=== PATIENT | female | born 1995 | race African-American/Black ===

== ENCOUNTER 2017-04-02 17:41 | Emergency (ER) | payer SELFPAY ==
[~2017-04-02] VITALS: Ht 160 cm; Wt 60.0 kg
[~2017-04-02 17:41] MED LIST: ZOFR4TAB3 SL
[2017-04-02 17:43] VITALS: BP 130/72; PULSE 66; RESP 20; TEMP 95.3; O2SAT 100
--- NOTE | 2017-04-02 17:50 | PD ---
HPI . intermittent spotting and suprapubic pain for few weeks Chief Complaint: Gut Dropper Problem/Complaint Time Seen by Provider: 17:50 Travel History International Travel<30 days: No Contact w/Intl Traveler<30days: No Traveled to known affect area: No History of Present Illness HPI 21-year-old female with no significant past medical history here with complaints of intermittent vaginal spotting since March 16, 2017. She also reports suprapubic pain that she rates as 8/10 without any further radiation. Patient decided to come in to the emergency room for evaluation as her symptoms do not seem to be improving. She also reports a white thick discharge. She tells me that the spotting is very light and at times she doesn't even require a panty liner. She denies any high risk sexual behaviors. She denies dysuria. She has no fever or chills. She has no other complaints. PFSH Past Medical History Hx Anticoagulant Therapy: No Blood Disorders: No Anxiety: Yes Depression: Yes Cancer: No Cardiovascular Problems: No Chemotherapy: No Cerebrovascular Accident: No Diabetes: No Diminished Hearing: No Endocrine: No Genitourinary: No Immune Disorder: No Neurologic: No Psychiatric: Yes Reproductive: No Respiratory: No Immunizations Current: Yes ?: Unknown LMP: 03/09/17 Menopausal: No : 1 Para: 0 Miscarriage: 1 Past Surgical History Hysterectomy: No Other Surgery: No Social History Alcohol Use: Yes (ON OCCASION) Tobacco Use: No Substance Use: No Allergies-Medications (Allergen,Severity, Reaction): Coded Allergies: No Known Allergies (Unverified , 04/02/17) Reported Meds & Prescriptions Reported Meds & Active Scripts Active Ciprofloxacin (Ciprofloxacin HCl) 500 Mg Tab 500 Mg PO BID 5 Days Review of Systems General / Constitutional: No: Fever Eyes: No: Visual changes HENT: No: Headaches Cardiovascular: No: Chest Pain or Discomfort Respiratory: No: Shortness of Breath Gastrointestinal: Positive: Abdominal Pain (suprapubic pain ) Genitourinary: Positive: Discharge, Vaginal Bleeding, No: Dysuria Musculoskeletal: No: Pain Skin: No Rash Neurologic: No: Weakness Psychiatric: No: Depression Endocrine: No: Polydipsia Hematologic/Lymphatic: No: Easy Bruising Physical Exam Narrative GENERAL: AAO x 3, no acute distress, Well-nourished, well-developed patient. SKIN: Warm and dry. No visible rashes or bruising. HEAD: Normocephalic and atraumatic. EYES: No scleral icterus. No injection or drainage. ENT: No nasal drainage noted. Mucous membranes pink. Airway patent. NECK: Supple, trachea midline. No JVD. CARDIOVASCULAR: Regular rate and rhythm without murmurs, gallops, or rubs. RESPIRATORY: Breath sounds equal bilaterally. No accessory muscle use. No rhonchi or rales. GASTROINTESTINAL: Abdomen soft, non-tender, nondistended. PELVIC: Crissy VERAS present: + cervical drainage, purulent appearance, white/ yellow colored, no blood, + cervical motion tenderness EXTREMITIES: No cyanosis or edema. BACK: Nontender without obvious deformity. No CVA tenderness. PSYCH: AAO x 3, normal affect. Data Data Last Documented VS Vital Signs Date Time Temp Pulse Resp B/P Pulse Ox O2 Delivery O2 Flow Rate FiO2 04/02/17 17:43 95.3 66 20 130/72 100 Room Air Orders Complete Blood Count With Diff (04/02/17 17:58) Basic Metabolic Panel (Bmp) (04/02/17 17:58) Gc And Chlamydia Pcr (04/02/17 17:58) Wet Prep Profile (04/02/17 17:58) Urinalysis - C+S If Indicated (04/02/17 17:58) Ketorolac Inj (Toradol Inj) (04/02/17 18:15) Urine Culture (04/02/17 18:01) Azithromycin Powd Pack (Zithromax Powd P (04/02/17 18:45) Ceftriaxone Inj (Rocephin Inj) (04/02/17 18:45) Lidocaine 1% Inj (50 Ml) (Xylocaine 1% I (04/02/17 18:45) Labs Laboratory Tests Test 04/02/17 04/02/17 18:01 18:04 Urine Color YELLOW Urine Turbidity HAZY Urine pH 6.5 Urine Specific [place] 1.015 Urine Protein NEG mg/dL Urine Glucose (UA) NEG mg/dL Urine Ketones NEG mg/dL Urine Occult Blood NEG Urine Nitrite NEG Urine Bilirubin NEG Urine Urobilinogen 2.0 MG/DL Urine Leukocyte Esterase SMALL Urine RBC LESS THAN 1 /hpf Urine WBC 2 /hpf Urine Squamous Epithelial 10 /hpf Cells Urine Amorphous Sediment RARE Urine Bacteria MOD /hpf Microscopic Urinalysis Comment CULTURE INDICATED White Blood Count 6.3 TH/MM3 Red Blood Count 4.45 MIL/MM3 Hemoglobin 12.8 GM/DL Hematocrit 40.2 % Mean Corpuscular Volume 90.3 FL Mean Corpuscular Hemoglobin 28.8 PG Mean Corpuscular Hemoglobin 31.9 % Concent Red Cell Distribution Width 13.1 % Platelet Count 244 TH/MM3 Mean Platelet Volume 8.4 FL Neutrophils (%) (Auto) 47.9 % Lymphocytes (%) (Auto) 38.5 % Monocytes (%) (Auto) 8.6 % Eosinophils (%) (Auto) 4.3 % Basophils (%) (Auto) 0.7 % Neutrophils # (Auto) 3.0 TH/MM3 Lymphocytes # (Auto) 2.4 TH/MM3 Monocytes # (Auto) 0.5 TH/MM3 Eosinophils # (Auto) 0.3 TH/MM3 Basophils # (Auto) 0.0 TH/MM3 CBC Comment DIFF FINAL Differential Comment Clue Cells (Wet Prep) NONE SEEN Vaginal Trichomonas (Wet Prep) NONE SEEN Vaginal Yeast (Wet Prep) NONE SEEN Sodium Level 139 MEQ/L Potassium Level 3.9 MEQ/L Chloride Level 106 MEQ/L Carbon Dioxide Level 24.3 MEQ/L Anion Gap 9 MEQ/L Blood Urea Nitrogen 11 MG/DL Creatinine 0.76 MG/DL Estimat Glomerular Filtration 114 ML/MIN Rate Random Glucose 94 MG/DL Calcium Level 9.9 MG/DL MDM Medical Decision Making Medical Screen Exam Complete: Yes Emergency Medical Condition: Yes Medical Record Reviewed: Yes Differential Diagnosis candidiasis, BV, gonorrhea, chlamydia, PID Narrative Course 21 yr old female here with c/o vaginal spotting and suprapubic pain. Labs and cultures have been ordered. Pelvic exam done and reveals some cervical discharge. I discussed STDs and treatment. Patient opted for prophylactic treatment. I have provided Rocephin and Azithromycin. I believe she may have gonorrhea. No BV, Trichomoniasis or Yeast seen. Discussed with patient. Date/Time Procedure Status Source Growth 04/02/17 18:01 Urine Culture Received Urine Random Urine Pending Laboratory Tests Test 04/02/17 04/02/17 18:01 18:04 Urine Color YELLOW Urine Turbidity HAZY Urine pH 6.5 Urine Specific [place] 1.015 Urine Protein NEG mg/dL Urine Glucose (UA) NEG mg/dL Urine Ketones NEG mg/dL Urine Occult Blood NEG Urine Nitrite NEG Urine Bilirubin NEG Urine Urobilinogen 2.0 MG/DL Urine Leukocyte Esterase SMALL Urine RBC LESS THAN 1 /hpf Urine WBC 2 /hpf Urine Squamous Epithelial 10 /hpf Cells Urine Amorphous Sediment RARE Urine Bacteria MOD /hpf Microscopic Urinalysis Comment CULTURE INDICATED White Blood Count 6.3 TH/MM3 Red Blood Count 4.45 MIL/MM3 Hemoglobin 12.8 GM/DL Hematocrit 40.2 % Mean Corpuscular Volume 90.3 FL Mean Corpuscular Hemoglobin 28.8 PG Mean Corpuscular Hemoglobin 31.9 % Concent Red Cell Distribution Width 13.1 % Platelet Count 244 TH/MM3 Mean Platelet Volume 8.4 FL Neutrophils (%) (Auto) 47.9 % Lymphocytes (%) (Auto) 38.5 % Monocytes (%) (Auto) 8.6 % Eosinophils (%) (Auto) 4.3 % Basophils (%) (Auto) 0.7 % Neutrophils # (Auto) 3.0 TH/MM3 Lymphocytes # (Auto) 2.4 TH/MM3 Monocytes # (Auto) 0.5 TH/MM3 Eosinophils # (Auto) 0.3 TH/MM3 Basophils # (Auto) 0.0 TH/MM3 CBC Comment DIFF FINAL Differential Comment Clue Cells (Wet Prep) NONE SEEN Vaginal Trichomonas (Wet Prep) NONE SEEN Vaginal Yeast (Wet Prep) NONE SEEN Sodium Level 139 MEQ/L Potassium Level 3.9 MEQ/L Chloride Level 106 MEQ/L Carbon Dioxide Level 24.3 MEQ/L Anion Gap 9 MEQ/L Blood Urea Nitrogen 11 MG/DL Creatinine 0.76 MG/DL Estimat Glomerular Filtration 114 ML/MIN Rate Random Glucose 94 MG/DL Calcium Level 9.9 MG/DL Recommend safe sexual practices. Advised to go to [facility] for further STD testing. Patient verbalized understanding of instructions, questions were answered, and thanked me for their care. I advised them if their condition worsens, please return to the nearest emergency room for further care. Diagnosis Primary Impression: Vaginal discharge Additional Impression: Urinary tract infection Qualified Code: N39.0 - Urinary tract infection without hematuria, site unspecified Patient Instructions: General Instructions, Safe Sex (ED) Additional Instructions: Please return to emergency department if your symptoms return or worsen. Follow up with your primary care provider. Take medications as prescribed. Please follow-up with the [facility] for further STD testing. Med/Other Pt SpecificInfo: Prescription(s) given Scripts Ciprofloxacin 500 Mg [id number] Mg PO BID 5 Days Ref 0 Prov:Del Aly MD 04/02/17 Disposition: 01 DISCHARGE HOME Condition: Stable Stephany Rubio April 02, 2017 17:50
[2017-04-02] MEDS ORDERED: KETOROLAC TROMETHAMINE 60 MG/2 ML (IM) VIAL IM ONE (18:15)
[2017-04-02 18:30] LABS: BASOPHIL % 0.7 % (0.0-2.0); EOSINOPHIL # 0.3 TH/MM3 (0-0.4); EOSINOPHIL % 4.3 % (0.0-4.0); HEMATOCRIT 40.2 % (35.0-46.0); HEMO FLAGS DIFF FINAL; LYMPH % 38.5 % (9.0-44.0); LYMPHOCYTE # 2.4 TH/MM3 (1.0-4.8); MEAN CELL VOLUME 90.3 FL (80.0-100.0); MEAN CORPUSCULAR HEMOGLOBIN 28.8 PG (27.0-34.0); MEAN CORPUSCULAR HGB CONC 31.9 % (32.0-36.0); MONO % 8.6 % (0.0-8.0); NEUT % 47.9 % (16.0-70.0); PLATELET COUNT 244 TH/MM3 (150-450); RED BLOOD COUNT 4.45 MIL/MM3 (4.00-5.30); RED CELL DISTRIBUTION WIDTH 13.1 % (11.6-17.2); WHITE BLOOD COUNT 6.3 TH/MM3 (4.0-11.0)
[2017-04-02 18:36] LABS: BACTERIA, URINE MOD /hpf; BLOOD, URINE NEG (NEG); COMMENT (UR) CULTURE INDICATED; CULTURE IF INDICATED CULTURE INDICATED; GLUCOSE,URINE NEG (NEG); KETONE, URINE NEG (NEG); NITRITE,URINE NEG (NEG); PH, URINE 6.5 (5.0-8.5); SQUAMOUS EPITHELIAL CELL URINE 10 /hpf (0-5); URINE COLOR YELLOW (YELLW/STRAW)
[2017-04-02 18:37] LABS: BICARBONATE 24.3 MEQ/L (21.0-32.0); POTASSIUM 3.9 MEQ/L (3.5-5.1)
[2017-04-02] MEDS ORDERED: cefTRIAXone 250 MG VIAL IM ONE (18:45)
[2017-04-02] MEDS ORDERED: AZITHROMYCIN PWD FOR SUSP 1 GM PACKET PO ONE (18:45)
[2017-04-02] MEDS ORDERED: LIDOCAINE HCL 1% 50 ML VIAL IM ONE (18:45)
[2017-04-02] MEDS ORDERED: CIPR500T2 PO (18:46)
[2017-04-02 21:32] LABS: CHLAMYDIA PCR NOT DETECTED (NOT DETECT); NEISSERIA PCR NOT DETECTED (NOT DETECT)
== END 2017-04-02 19:31 | disposition home or self-care (01) ==
LOC: NEPD 17:41
DX: N89.8 Other specified noninflammatory disorders of vagina (principal); N39.0 Urinary tract infection, site not specified; B96.89 Other specified bacterial agents as the cause of diseases classified elsewhere
CPT/HCPCS: 80048; 81001; 85025; 87086; 87210; 87491; 87591; 96372; 99284; J0696; J1885

== ENCOUNTER 2017-04-06 16:36 | Emergency (ER) | payer SELFPAY ==
[~2017-04-06] VITALS: Ht 160 cm; Wt 60.0 kg
[~2017-04-06 16:36] MED LIST changes: +CIPR500T2 PO; -ZOFR4TAB3 SL
[2017-04-06 16:39] VITALS: BP 141/80; PULSE 74; RESP 14; TEMP 98; O2SAT 98
--- NOTE | 2017-04-06 16:43 | PD ---
Physical Exam Time Seen by Provider: 16:42 Narrative 21 y/o female here for evaluation of "menstrual cramps" since yesterday. More vaginal bleeding than usual for her menstrual period. Vital signs reviewed. Seen at triage desk. Awaiting bed placement. Data Data Last Documented VS Vital Signs Date Time Temp Pulse Resp B/P Pulse Ox O2 Delivery O2 Flow Rate FiO2 04/06/17 16:39 98.0 74 14 141/80 98 MDM Medical Record Reviewed: Yes Supervised Visit with AMARI: Earl Walters Apr 06, 2017 16:43
[2017-04-06] MEDS ORDERED: KETOROLAC TROMETHAMINE 60 MG/2 ML (IM) VIAL IM ONE (17:15)
--- NOTE | 2017-04-06 17:16 | PD ---
HPI Chief Complaint: Pain: Acute or Chronic Time Seen by Provider: 17:08 Travel History International Travel<30 days: No Contact w/Intl Traveler<30days: No Traveled to known affect area: No History of Present Illness HPI 21yo F with no PMH presents to the ED with c/o menstrual cramps that started today. States she took ibuprofen this morning but did not help. Pt states her first and second day of her menstrual period is usually worst. Feels like her menstrual cramps. Denies any fever, chest pain, sob, n/v, vaginal discharge, dysuria, focal weakness or numbness. Pt was seen at [place] [facility] on 04/02/17 for vaginal discharge and given cipro for presumed UTI. Urine culture showed 50,000 -100,000 mixed sy, likely contaminants. Wet prep and GC/chlamydia negative. PFSH Past Medical History Hx Anticoagulant Therapy: No Blood Disorders: No Anxiety: Yes Depression: Yes Cancer: No Cardiovascular Problems: No Chemotherapy: No Cerebrovascular Accident: No Diabetes: No Diminished Hearing: No Endocrine: No Genitourinary: No Immune Disorder: No Neurologic: No Psychiatric: Yes Reproductive: No Respiratory: No Immunizations Current: Yes Influenza Vaccination: Yes ?: Not LMP: 04/06/17 Menopausal: No : 1 Para: 0 Miscarriage: 1 Past Surgical History Surgical History: No Previous Surgery Hysterectomy: No Other Surgery: No Social History Alcohol Use: No Tobacco Use: No Substance Use: No Allergies-Medications (Allergen,Severity, Reaction): Coded Allergies: No Known Allergies (Unverified , 04/06/17) Reported Meds & Prescriptions Reported Meds & Active Scripts Active Ciprofloxacin (Ciprofloxacin HCl) 500 Mg Tab 500 Mg PO BID 5 Days Review of Systems Except as stated in HPI: all other systems reviewed are Neg Physical Exam Narrative GENERAL: 21yo F not in distress. SKIN: Focused skin assessment warm/dry. HEAD: Atraumatic. Normocephalic. CARDIOVASCULAR: Regular rate and rhythm. No murmur appreciated. RESPIRATORY: No accessory muscle use. Clear to auscultation. Breath sounds equal bilaterally. GASTROINTESTINAL: Abdomen soft, non-tender, nondistended. No rebound tenderness or guarding. MUSCULOSKELETAL: No obvious deformities. No clubbing. No cyanosis. No edema. NEUROLOGICAL: Awake and alert. No obvious cranial nerve deficits. Motor grossly within normal limits. Normal speech. PSYCHIATRIC: Appropriate mood and affect; insight and judgment normal. Data Data Last Documented VS Vital Signs Date Time Temp Pulse Resp B/P Pulse Ox O2 Delivery O2 Flow Rate FiO2 04/06/17 16:39 98.0 74 14 141/80 98 Orders Ketorolac Inj (Toradol Inj) (04/06/17 17:15) Ed Urine Pregnancytest Poc (04/06/17 17:08) Urinalysis - C+S If Indicated (04/06/17 17:08) Naproxen (Naprosyn) (04/06/17 18:15) Urine Culture (04/06/17 17:15) Labs Laboratory Tests Test 04/06/17 17:15 Urine Color LIGHT-RED Urine Turbidity HAZY Urine pH 6.5 Urine Specific [place] 1.015 Urine Protein 30 mg/dL Urine Glucose (UA) NEG mg/dL Urine Ketones NEG mg/dL Urine Occult Blood MOD Urine Nitrite NEG Urine Bilirubin NEG Urine Urobilinogen LESS THAN 2.0 MG/DL Urine Leukocyte Esterase SMALL Urine RBC /hpf Urine WBC 15 /hpf Urine Squamous Epithelial 4 /hpf Cells Urine Bacteria OCC /hpf Microscopic Urinalysis Comment CULTURE INDICATED MDM Medical Decision Making Medical Screen Exam Complete: Yes Emergency Medical Condition: Yes Differential Diagnosis Menstrual cramps vs. UTI vs. Narrative Course 21yo F with c/o menstrual cramps that started today. States it feels like her usual menstrual cramps. Abdominal exam is benign with no tenderness on exam. Ordered toradol but pt did not want a shot. Pt given naprosyn instead and states pain has improved. Urine negative. UA showed WBC 15. Moderate blood. Pt is on her menstrual period. Since pt has no UTI symptoms and recently given cipro and still has cipro, she can continue taking it. Diagnosis Primary Impression: Menstrual cramps Patient Instructions: General Instructions Departure Forms: Tests/Procedures Additional Instructions: Please follow up with your [facility] in 3-7 days. Return to the ED if symptoms worsen. Med/Other Pt SpecificInfo: Prescription(s) given Scripts Naproxen 250 Mg [id number] Mg PO BID 10 Days Ref 0 Prov:BlossomAshley DO 04/06/17 Disposition: 01 DISCHARGE HOME Condition: Stable Ashley Cerrato DO Apr 06, 2017 17:16
[2017-04-06 18:07] LABS: BACTERIA, URINE OCC /hpf; BLOOD, URINE MOD (NEG); COMMENT (UR) CULTURE INDICATED; CULTURE IF INDICATED CULTURE INDICATED; GLUCOSE,URINE NEG (NEG); KETONE, URINE NEG (NEG); NITRITE,URINE NEG (NEG); PH, URINE 6.5 (5.0-8.5); SQUAMOUS EPITHELIAL CELL URINE 4 /hpf (0-5); URINE COLOR LIGHT-RED (YELLW/STRAW)
[2017-04-06] MEDS ORDERED: NAPROXEN 250 MG TAB PO ONE (18:15)
[2017-04-06] MEDS ORDERED: NAPR250T PO (18:23)
== END 2017-04-06 18:48 | disposition home or self-care (01) ==
LOC: NEPD 16:36
DX: N94.6 Dysmenorrhea, unspecified (principal); B96.89 Other specified bacterial agents as the cause of diseases classified elsewhere
CPT/HCPCS: 81001; 84703; 87086; 99282

== ENCOUNTER 2017-04-29 11:08 | Emergency (ER) | payer SELFPAY ==
[~2017-04-29 11:08] MED LIST changes: +NAPR250T PO
[2017-04-29 11:10] VITALS: BP 138/61; PULSE 76; RESP 15; TEMP 97.9; O2SAT 98
--- NOTE | 2017-04-29 11:54 | PD ---
HPI . chest pain x 3 days and body aches Chief Complaint: Pain: Acute or Chronic Time Seen by Provider: 11:54 Travel History International Travel<30 days: No Contact w/Intl Traveler<30days: No Traveled to known affect area: No History of Present Illness HPI 21-year-old female with no significant past medical history here with complaints of 3 days worth of chest pain and 1 day's worth of body aches. Patient tells me that she had chest pain (substernal) for the past 3 days rated as 7/10 sharp without any radiation.She also tells me that this morning her entire body started to ache 10/10 on pain scale, and this is what prompted her to come to the emergency department. She has generalized aches and pains all over her body. She denies any fever or chills. She denies any cold or flulike symptoms. She's not tried any svgu-[id number] medications. No recent travel nor does she take oral contraceptive pills. She does admit to smoking marijuana most recently yesterday. PFSH Past Medical History Hx Anticoagulant Therapy: No Blood Disorders: No Anxiety: Yes Depression: Yes Cancer: No Cardiovascular Problems: No Chemotherapy: No Cerebrovascular Accident: No Diabetes: No Diminished Hearing: No Endocrine: No Genitourinary: No Immune Disorder: No Neurologic: No Psychiatric: Yes Reproductive: No Respiratory: No Immunizations Current: Yes Influenza Vaccination: No ?: Unknown LMP: 04/12/2017 Menopausal: No : 1 Para: 0 Miscarriage: 1 Past Surgical History Surgical History: No Previous Surgery Hysterectomy: No Other Surgery: No Social History Alcohol Use: Yes (RARELY) Tobacco Use: No Substance Use: Yes (MARIJUANA) Allergies-Medications (Allergen,Severity, Reaction): Coded Allergies: No Known Allergies (Unverified , 04/29/17) Reported Meds & Prescriptions Reported Meds & Active Scripts Active Bactrim DS (Sulfamethoxazole-Trimethoprim) 800-160 Mg Tab 1 Tab PO BID Review of Systems General / Constitutional: Positive: Other (body aches), No: Fever Eyes: No: Visual changes HENT: No: Headaches Cardiovascular: Positive: Chest Pain or Discomfort, No: Diaphoresis Respiratory: No: Cough, Shortness of Breath, Wheezing, Sneezing Gastrointestinal: No: Nausea, Abdominal Pain Genitourinary: No: Dysuria Musculoskeletal: Positive: Myalgias, No: Pain Skin: No Rash Neurologic: No: Weakness Psychiatric: No: Depression Endocrine: No: Polydipsia Hematologic/Lymphatic: No: Easy Bruising Physical Exam Narrative GENERAL: AAO x 3, no acute distress, Well-nourished, well-developed patient. SKIN: Warm and dry. No visible rashes or bruising. HEAD: Normocephalic and atraumatic. EYES: No scleral icterus. No injection or drainage. EOM intact, PERRLA ENT: No nasal drainage noted. Mucous membranes pink. Airway patent. Mild to moderate posterior pharynx erythema. NECK: Supple, trachea midline. No JVD. No lymphadenopathy CARDIOVASCULAR: Regular rate and rhythm without murmurs, gallops, or rubs. Chest pain is reproducible with palpation to the sternum. RESPIRATORY: Breath sounds equal bilaterally. No accessory muscle use. No rhonchi or rales. GASTROINTESTINAL: Abdomen soft, non-tender, nondistended. Normoactive bowel sounds EXTREMITIES: No cyanosis or edema. BACK: Nontender without obvious deformity. No CVA tenderness. NEURO: CN II-12 intact, lead c developer strength normal b/l, UE and LE 5/5, no focal deficits PSYCH: AAO x 3, normal affect. Data Data Last Documented VS Vital Signs Date Time Temp Pulse Resp B/P Pulse Ox O2 Delivery O2 Flow Rate FiO2 04/29/17 14:48 62 16 128/69 99 Room Air 04/29/17 11:10 97.9 Orders Electrocardiogram (04/29/17 11:52) Ckmb (Isoenzyme) Profile (04/29/17 11:52) Complete Blood Count With Diff (04/29/17 11:52) Comprehensive Metabolic Panel (04/29/17 11:52) D-Dimer (04/29/17 11:52) Magnesium (Mg) (04/29/17 11:52) Prothrombin Time / Inr (Pt) (04/29/17 11:52) Act Partial Throm Time (Ptt) (04/29/17 11:52) Troponin I (04/29/17 11:52) Chest, Single Ap (04/29/17 11:52) Ecg Monitoring (04/29/17 11:52) Bilateral Bp Monitoring (04/29/17 11:52) Iv Access Insert/Monitor (04/29/17 11:52) Oximetry (04/29/17 11:52) Oxygen Administration (04/29/17 11:52) Sodium Chloride 0.9% Flush (Ns Flush) (04/29/17 12:00) Influenzae A/B Antigen (04/29/17 11:54) Ketorolac Inj (Toradol Inj) (04/29/17 12:15) CKMB (04/29/17 12:00) CKMB% (04/29/17 12:00) Electrocardiogram (04/29/17 ) Urinalysis - C+S If Indicated (04/29/17 13:49) Urine Culture (04/29/17 14:15) Labs Laboratory Tests Test 04/29/17 04/29/17 12:00 14:15 White Blood Count 14.2 TH/MM3 Red Blood Count 4.78 MIL/MM3 Hemoglobin 14.4 GM/DL Hematocrit 42.2 % Mean Corpuscular Volume 88.2 FL Mean Corpuscular Hemoglobin 30.1 PG Mean Corpuscular Hemoglobin 34.1 % Concent Red Cell Distribution Width 13.1 % Platelet Count 232 TH/MM3 Mean Platelet Volume 8.7 FL Neutrophils (%) (Auto) 83.2 % Lymphocytes (%) (Auto) 8.9 % Monocytes (%) (Auto) 7.2 % Eosinophils (%) (Auto) 0.4 % Basophils (%) (Auto) 0.3 % Neutrophils # (Auto) 11.8 TH/MM3 Lymphocytes # (Auto) 1.3 TH/MM3 Monocytes # (Auto) 1.0 TH/MM3 Eosinophils # (Auto) 0.1 TH/MM3 Basophils # (Auto) 0.0 TH/MM3 CBC Comment DIFF FINAL Differential Comment Prothrombin Time 11.3 SEC Prothromb Time International 1.0 RATIO Ratio Activated Partial 28.5 SEC Thromboplast Time D-Dimer Quantitative (PE/DVT) LESS THAN 0.19 MG/L FEU Sodium Level 135 MEQ/L Potassium Level 3.9 MEQ/L Chloride Level 105 MEQ/L Carbon Dioxide Level 23.1 MEQ/L Anion Gap 7 MEQ/L Blood Urea Nitrogen 9 MG/DL Creatinine 0.73 MG/DL Estimat Glomerular Filtration 120 ML/MIN Rate Random Glucose 85 MG/DL Calcium Level 10.1 MG/DL Magnesium Level 1.9 MG/DL Total Bilirubin 1.5 MG/DL Aspartate Amino Transf 16 U/L (AST/SGOT) Alanine Aminotransferase 16 U/L (ALT/SGPT) Alkaline Phosphatase 69 U/L Total Creatine Kinase 101 U/L Creatine Kinase MB LESS THAN 0.5 NG/ML Troponin I LESS THAN 0.02 NG/ML Total Protein 8.1 GM/DL Albumin 3.9 GM/DL Urine Color YELLOW Urine Turbidity HAZY Urine pH 7.0 Urine Specific [place] 1.023 Urine Protein 30 mg/dL Urine Glucose (UA) NEG mg/dL Urine Ketones TRACE mg/dL Urine Occult Blood NEG Urine Nitrite POS Urine Bilirubin NEG Urine Urobilinogen 2.0 MG/DL Urine Leukocyte Esterase LARGE Urine RBC 5 /hpf Urine WBC 121 /hpf Urine Squamous Epithelial 17 /hpf Cells Urine Amorphous Sediment RARE Urine Bacteria MANY /hpf Urine Mucus FEW /lpf Microscopic Urinalysis Comment CULTURE INDICATED MDM Medical Decision Making Medical Screen Exam Complete: Yes Emergency Medical Condition: Yes Medical Record Reviewed: Yes Differential Diagnosis atypical chest pain, Wellen's syndrome, less likely ACS, pulmonary emboli, influenza, Narrative Course 21 yr old female with no PMH here with c/o 3 days worth of chest pain. She also admits to sudden onset of body pain today. EKG was reviewed by Dr. Duggan and patient has biphasic t waves, with possible Wellen's Syndrome. IV access was obtained, labs and imaging obtained. With the biphasic T waves and possibility of Wellen's syndrome, patient will be kept overnight for observation and the chest pain center. Toradol given for pain control. WBC came back elevated and CXR normal. I have ordered UA. UA positive for infection. repeat EKG shows same t wave abnormality. Reviewed by Dr. Alfred. I discussed admission with patient and she told Joe VERAS she wanted to leave. Last Impressions Chest X-Ray 04/29/17 1152 Signed Impressions: Service Date/Time: Saturday, April 29, 2017 12:04 - CONCLUSION: Normal examination. Baljinder Dickerson MD Laboratory Tests Test 04/29/17 04/29/17 12:00 14:15 White Blood Count 14.2 TH/MM3 Red Blood Count 4.78 MIL/MM3 Hemoglobin 14.4 GM/DL Hematocrit 42.2 % Mean Corpuscular Volume 88.2 FL Mean Corpuscular Hemoglobin 30.1 PG Mean Corpuscular Hemoglobin 34.1 % Concent Red Cell Distribution Width 13.1 % Platelet Count 232 TH/MM3 Mean Platelet Volume 8.7 FL Neutrophils (%) (Auto) 83.2 % Lymphocytes (%) (Auto) 8.9 % Monocytes (%) (Auto) 7.2 % Eosinophils (%) (Auto) 0.4 % Basophils (%) (Auto) 0.3 % Neutrophils # (Auto) 11.8 TH/MM3 Lymphocytes # (Auto) 1.3 TH/MM3 Monocytes # (Auto) 1.0 TH/MM3 Eosinophils # (Auto) 0.1 TH/MM3 Basophils # (Auto) 0.0 TH/MM3 CBC Comment DIFF FINAL Differential Comment Prothrombin Time 11.3 SEC Prothromb Time International 1.0 RATIO Ratio Activated Partial 28.5 SEC Thromboplast Time D-Dimer Quantitative (PE/DVT) LESS THAN 0.19 MG/L FEU Sodium Level 135 MEQ/L Potassium Level 3.9 MEQ/L Chloride Level 105 MEQ/L Carbon Dioxide Level 23.1 MEQ/L Anion Gap 7 MEQ/L Blood Urea Nitrogen 9 MG/DL Creatinine 0.73 MG/DL Estimat Glomerular Filtration 120 ML/MIN Rate Random Glucose 85 MG/DL Calcium Level 10.1 MG/DL Magnesium Level 1.9 MG/DL Total Bilirubin 1.5 MG/DL Aspartate Amino Transf 16 U/L (AST/SGOT) Alanine Aminotransferase 16 U/L (ALT/SGPT) Alkaline Phosphatase 69 U/L Total Creatine Kinase 101 U/L Creatine Kinase MB LESS THAN 0.5 NG/ML Troponin I LESS THAN 0.02 NG/ML Total Protein 8.1 GM/DL Albumin 3.9 GM/DL Urine Color YELLOW Urine Turbidity HAZY Urine pH 7.0 Urine Specific [place] 1.023 Urine Protein 30 mg/dL Urine Glucose (UA) NEG mg/dL Urine Ketones TRACE mg/dL Urine Occult Blood NEG Urine Nitrite POS Urine Bilirubin NEG Urine Urobilinogen 2.0 MG/DL Urine Leukocyte Esterase LARGE Urine RBC 5 /hpf Urine WBC 121 /hpf Urine Squamous Epithelial 17 /hpf Cells Urine Amorphous Sediment RARE Urine Bacteria MANY /hpf Urine Mucus FEW /lpf Microscopic Urinalysis Comment CULTURE INDICATED 1500: I discussed all of the findings with the patient. She does not want to stay for admission. She tells me she wants to sign out against medical advice. I discussed the risks with her and she still wants to leave. I advised her that I would give her antibiotics for her UTI. Diagnosis Primary Impression: Left against medical advice Additional Impressions: UTI (urinary tract infection) Qualified Code: N39.0 - Urinary tract infection without hematuria, site unspecified Chest pain Qualified Code: R07.9 - Chest pain, unspecified type Scripts Sulfamethoxazole-Trimethoprim (Bactrim DS)800-160 Mg Tab1 Tab PO BID #20 TAB Prov:Herbie Alfred MD 04/29/17 Disposition: 07 AGAINST MEDICAL ADVICE Condition: Stable Stephany Rubio Apr 29, 2017 11:54
[2017-04-29] MEDS ORDERED: SODIUM CHLORIDE 0.9% FLUSH 10 ML FLUSH IVF PRN (12:00)
[2017-04-29 12:04] VITALS: BP 122/75; PULSE 82; RESP 16; O2SAT 97
[2017-04-29 12:14] LABS: AUTOMATED NEUTROPHIL # 11.8 TH/MM3 (1.8-7.7); BASOPHIL % 0.3 % (0.0-2.0); EOSINOPHIL # 0.1 TH/MM3 (0-0.4); EOSINOPHIL % 0.4 % (0.0-4.0); HEMATOCRIT 42.2 % (35.0-46.0); HEMO FLAGS DIFF FINAL; LYMPH % 8.9 % (9.0-44.0); LYMPHOCYTE # 1.3 TH/MM3 (1.0-4.8); MEAN CELL VOLUME 88.2 FL (80.0-100.0); MEAN CORPUSCULAR HEMOGLOBIN 30.1 PG (27.0-34.0); MEAN CORPUSCULAR HGB CONC 34.1 % (32.0-36.0); MONO % 7.2 % (0.0-8.0); NEUT % 83.2 % (16.0-70.0); PLATELET COUNT 232 TH/MM3 (150-450); RED BLOOD COUNT 4.78 MIL/MM3 (4.00-5.30); RED CELL DISTRIBUTION WIDTH 13.1 % (11.6-17.2); WHITE BLOOD COUNT 14.2 TH/MM3 (4.0-11.0)
[2017-04-29] MEDS ORDERED: KETOROLAC TROMETHAMINE 30 MG/ML (IVP) VIAL IV PUSH ONE (12:15)
[2017-04-29 12:33] LABS: APTT (PATIENT) 28.5 SEC (24.3-30.1); PROTHROMBIN TIME - PATIENT 11.3 SEC (9.8-11.6)
--- NOTE | 2017-04-29 12:40 | RADRPT ---
EXAM DATE/TIME: 04/29/2017 12:04 [facility] COMPARISON: No previous studies available for comparison. INDICATIONS : Chest pain and shortness of breath. MEDICAL HISTORY : None. SURGICAL HISTORY : None. ENCOUNTER: Initial ACUITY: 1 day PAIN SCORE: 7/10 LOCATION: Bilateral chest FINDINGS: A single view of the chest demonstrates the lungs to be symmetrically aerated without evidence of mas s, infiltrate or effusion. The cardiomediastinal contours are unremarkable. Osseous structures are intact. CONCLUSION: Normal examination. Baljinder Dickerson MD on April 29, 2017 at 12:36 Board Certified Radiologist. This report was verified electronically.
[2017-04-29 12:45] LABS: ALT (GPT) 16 U/L (10-53); ANION GAP 7 MEQ/L (5-15); AST (GOT) 16 U/L (15-37); BICARBONATE 23.1 MEQ/L (21.0-32.0); BLOOD UREA NITROGEN 9 MG/DL (7-18); CHLORIDE 105 MEQ/L (98-107); GLOMERULAR FILTRATION RATE 120 ML/MIN (>89); MAGNESIUM 1.9 MG/DL (1.5-2.5); POTASSIUM 3.9 MEQ/L (3.5-5.1); SODIUM (NA) 135 MEQ/L (136-145)
[2017-04-29 12:49] LABS: ALKALINE PHOSPHATASE 69 U/L (45-117); CREATINE KINASE 101 U/L (26-192); TOTAL BILIRUBIN ADULT 1.5 MG/DL (0.2-1.0)
[2017-04-29 13:02] LABS: CKMB LESS THAN 0.5 NG/ML (0.5-3.6)
[2017-04-29 14:41] LABS: BACTERIA, URINE MANY /hpf; BLOOD, URINE NEG (NEG); COMMENT (UR) CULTURE INDICATED; CULTURE IF INDICATED CULTURE INDICATED; GLUCOSE,URINE NEG (NEG); KETONE, URINE TRACE mg/dL (NEG); MUCUS URINE FEW /lpf (OCC); SQUAMOUS EPITHELIAL CELL URINE 17 /hpf (0-5); URINE COLOR YELLOW (YELLW/STRAW)
[2017-04-29 14:42] LABS: NITRITE,URINE POS (NEG)
[2017-04-29 14:48] VITALS: BP 128/69; PULSE 62; RESP 16; O2SAT 99
[2017-04-29] MEDS ORDERED: BACT800T5 PO (15:00)
--- NOTE | 2017-05-01 08:41 | EKG ---
Date Performed: 04/29/2017 Time Performed: 13:44:58 PTAGE: 21 years EKG: Sinus rhythm NONSPECIFIC T-WAVE ABNORMALITY ABNORMAL ECG NO PREVIOUS TRACING DOCTOR: Kell Us Interpretating Date/Time 05/01/2017 08:39:40
--- NOTE | 2017-05-01 08:43 | EKG ---
Date Performed: 04/29/2017 Time Performed: 11:40:16 PTAGE: 21 years EKG: Sinus rhythm WITH SINUS ARRHYTHMIA POSSIBLE LEFT ATRIAL ENLARGEMENT NONSPECIFIC T-WAVE ABNORMALITY ABNORMAL ECG NO PREVIOUS TRACING DOCTOR: Kell Us Interpretating Date/Time 05/01/2017 08:41:06
== END 2017-04-29 15:40 | disposition left against medical advice (07) ==
LOC: NEPC 11:08
DX: N39.0 Urinary tract infection, site not specified (principal); R07.9 Chest pain, unspecified; B96.20 Unspecified Escherichia coli [E. coli] as the cause of diseases classified elsewhere; M79.1 Myalgia; R94.31 Abnormal electrocardiogram [ECG] [EKG]; Z79.899 Other long term (current) drug therapy; Z86.59 Personal history of other mental and behavioral disorders; Z53.29 Procedure and treatment not carried out because of patient's decision for other reasons
CPT/HCPCS: 71010; 80053; 81001; 82550; 82552; 83735; 84484; 85025; 85379; 85610; 85730; 87077; 87086; 87186; 87804; 93005; 96374; 99285; J1885

== ENCOUNTER 2017-05-03 18:14 | Observation (INO) | payer SELFPAY ==
[~2017-05-03] VITALS: Ht 157.5 cm; Wt 65.0 kg
[~2017-05-03 18:14] MED LIST changes: +BACT800T5 PO; -CIPR500T2 PO; -NAPR250T PO
[2017-05-03 18:16] VITALS: BP 122/96; PULSE 89; RESP 22; TEMP 98; O2SAT 99
--- NOTE | 2017-05-03 19:00 | PD ---
HPI Chief Complaint: Cardiac Complaint Time Seen by Provider: 19:00 Travel History International Travel<30 days: No Contact w/Intl Traveler<30days: No Traveled to known affect area: No History of Present Illness HPI 21 YO F presents to the ED for evaluation of intermittent chest pain. Described as sharp, located in the central part of the chest, sudden onset, variable in length, resolving spontaneously. Accompanied by shortness of breath , palpitations and diaphoresis. Patient endorses one episode of vomiting recently. Denies nausea today. She denies family history of cardiac disease. She denies smoking or illicit drug use. Patient was seen with the same problem a few days ago and left AMA. She states she is amenable to overnight admission today. PFSH Past Medical History Hx Anticoagulant Therapy: No Blood Disorders: No Anxiety: Yes Depression: Yes Cancer: No Cardiovascular Problems: No Chemotherapy: No Cerebrovascular Accident: No Diabetes: No Diminished Hearing: No Endocrine: No Genitourinary: No Immune Disorder: No Neurologic: No Psychiatric: Yes Reproductive: No Respiratory: No Immunizations Current: Yes ?: Not LMP: 05/03/2017 Menopausal: No : 1 Para: 0 Miscarriage: 1 Past Surgical History Surgical History: No Previous Surgery Hysterectomy: No Other Surgery: No Social History Alcohol Use: Yes (RARELY) Tobacco Use: No Substance Use: Yes (MARIJUANA) Allergies-Medications (Allergen,Severity, Reaction): Coded Allergies: No Known Allergies (Unverified , 05/03/17) Reported Meds & Prescriptions Reported Meds & Active Scripts Active No Active Prescriptions or Reported Medications Review of Systems Except as stated in HPI: all other systems reviewed are Neg Physical Exam Narrative GENERAL: Well-nourished, well-developed and black female in no acute distress. SKIN: Focused skin assessment warm/dry. HEAD: Normocephalic. EYES: No scleral icterus. No injection or drainage. NECK: Supple, trachea midline. No JVD or lymphadenopathy. CARDIOVASCULAR: Regular rate and rhythm without murmurs, gallops, or rubs. CHEST: Mild TTP of the lower 1/3 of the sternum. Without deformity or crepitus. No retractions or use of accessory muscles. RESPIRATORY: Breath sounds equal bilaterally. No accessory muscle use. GASTROINTESTINAL: Abdomen soft, non-tender, nondistended. Active bowel sounds. No hepatosplenomegaly. Santiago sign negative. MUSCULOSKELETAL: No cyanosis, or edema. Ambulatory, moves extremities spontaneously. BACK: Nontender without obvious deformity. No CVA tenderness. Data Data Last Documented VS Vital Signs Date Time Temp Pulse Resp B/P Pulse Ox O2 Delivery O2 Flow Rate FiO2 05/03/17 19:25 70 14 122/60 100 Room Air 05/03/17 18:16 98.0 Orders Electrocardiogram (05/03/17 18:59) Chest, Single Ap (05/03/17 18:59) Ckmb (Isoenzyme) Profile (05/03/17 18:59) Troponin I (05/03/17 18:59) Place In Observation (05/03/17 19:26) Activity Bed Rest With Brp (05/03/17 19:26) Vital Signs (Adult) Q4H (05/03/17 19:) Cardiac Rhythm .As Directed (05/03/17 19:26) Notify Dr: Other .PRN (05/03/17 19:26) Notify Parameters (05/03/17 19:26) Resp Oxygen Nasal Cannula (05/03/17 ) Ckmb (Isoenzyme) Profile (05/03/17 19:26) Ckmb (Isoenzyme) Profile (05/03/17 22:26) Troponin I (05/03/17:26) Troponin I (05/03/17 22:26) Electrocardiogram (05/03/17 19:26) Electrocardiogram (05/03/17 22:26) ^ Obtain (05/03/17 19:26) Sodium Chloride 0.9% Flush (Ns Flush) (05/03/17 19:30) Sodium Chloride 0.9% Flush (Ns Flush) (05/03/17 21:00) Continuous Improvement Consultant / Telemetry PRATIMA.Q8H (05/03/17 19:26) Admit Order (Ed Use Only) (05/03/17 19:28) MDM Medical Decision Making Medical Screen Exam Complete: Yes Emergency Medical Condition: Yes Differential Diagnosis GERD versus musculoskeletal pain versus costochondritis versus cholelithiasis versus chest pain versus atypical chest pain versus less likely ACS versus other Narrative Course 21 YO F presents to the ED for evaluation of intermittent chest pain. Described as sharp, located in the central part of the chest, sudden onset, variable in length, resolving spontaneously. Accompanied by shortness of breath , palpitations and diaphoresis. Patient denies nausea or vomiting. She denies family history cardiac disease. She denies smoking or illicit drug use. Patient was seen with the same problem a few days ago and left AMA. She states she is amenable to overnight admission today. Vitals reviewed. Physical exam reveals some tenderness palpation over the distal third of the sternum. No epigastric tenderness. Santiago's sign negative. CXR: No acute disease per radiology read. EKG: Rate 63, sinus rhythm. MA interval 170, QRS 85, QTC 393 ms. Normal axis. Similar to EKG of 04/29. Relieved by Dr. Sheth. Cardiac enzymes: Pending Review of the record reveals Dr. 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 Will admit to [facility] for further evaluation. Please see [facility] notes for disposition. Diagnosis Primary Impression: Chest pain Qualified Code: R07.9 - Chest pain, unspecified type Scripts No Active Prescriptions or Reported Meds Dayanara Kirby May 03, 2017 19:00
[2017-05-03 19:25] VITALS: BP 122/60; PULSE 70; RESP 14; O2SAT 100
[2017-05-03] MEDS ORDERED: SODIUM CHLORIDE 0.9% FLUSH 10 ML FLUSH IV FLUSH PRN (19:30)
--- NOTE | 2017-05-03 19:41 | RADRPT ---
EXAM DATE/TIME: 05/03/2017 19:14 [facility] COMPARISON: CHEST SINGLE AP, April 29, 2017, 12:04. INDICATIONS : Chest pain MEDICAL HISTORY : None. SURGICAL HISTORY : None. ENCOUNTER: Initial ACUITY: 1 day PAIN SCORE: 6/10 LOCATION: Bilateral chest FINDINGS: A single view of the chest demonstrates the lungs to be symmetrically aerated without evidence of mas s, infiltrate or effusion. The cardiomediastinal contours are unremarkable. Osseous structures are intact. CONCLUSION: No acute disease. Saúl Henderson MD on May 03, 2017 at 19:39 Board Certified Radiologist. This report was verified electronically.
[2017-05-03 20:26] LABS: CREATINE KINASE 104 U/L (26-192)
[2017-05-03 20:39] LABS: CKMB 0.8 NG/ML (0.5-3.6)
[2017-05-03 20:58] VITALS: BP 105/55; PULSE 66; RESP 17; TEMP 98; O2SAT 100
[2017-05-03] MEDS ORDERED: SODIUM CHLORIDE 0.9% FLUSH 10 ML FLUSH IV FLUSH SCH (21:00)
[2017-05-03 23:14] LABS: CREATINE KINASE 84 U/L (26-192)
[2017-05-04] VITALS: PULSE 60
[2017-05-04 00:06] VITALS: BP 109/73; PULSE 73; RESP 19; TEMP 98.2; O2SAT 99
[2017-05-04 01:56] LABS: CREATINE KINASE 109 U/L (26-192)
[2017-05-04 02:09] LABS: CKMB 0.6 NG/ML (0.5-3.6)
[2017-05-04 04:00] VITALS: PULSE 55
--- NOTE | 2017-05-04 05:03 | EKG ---
Date Performed: 05/03/2017 Time Performed: 19:05:55 PTAGE: 21 years EKG: Sinus rhythm POSSIBLE LEFT ATRIAL ENLARGEMENT NONSPECIFIC T-WAVE ABNORMALITY ABNORMAL ECG NO PREVIOUS TRACING DOCTOR: Jn Mead Interpretating Date/Time 05/04/2017 05:00:50
[2017-05-04 05:15] VITALS: BP 105/50; PULSE 60; RESP 18; TEMP 98; O2SAT 100
[2017-05-04 07:50] VITALS: BP 114/76; PULSE 70; RESP 17; TEMP 96.6; O2SAT 99
[2017-05-04 08:00] VITALS: PULSE 62; O2SAT 99
[2017-05-04] MEDS ORDERED: KETOROLAC TROMETHAMINE 30 MG/ML (IVP) VIAL IVP ONE (08:15)
--- NOTE | 2017-05-04 08:36 | HHI.HP ---
HPI Primary Care Physician No Primary Care Physician Chief Complaint Chest pain History of Present Illness This is a 21-year-old female that presents to ED via private vehicle to be evaluated for intermittent chest discomfort. She states she's had this for a week intermittently. She describes as a discomfort lasted all day and will go away when she would go to sleep but when she woke back up it would still be present. At times little shortness of breath which was when she was skateboarding but otherwise no shortness of breath. Denies nausea or vomiting. Denies diaphoresis. Denies any recent illnesses. Denies being . Denies recent travel. Currently asymptomatic. Review of Systems General: Patient denies fevers, chills recent, and recent travel HEENT: Patient denies headache, sore throat, difficulty swallowing. Cardiovascular: Has the chest discomfort as mentioned above. Denies sensation of heart beating rapidly or irregularly. No syncope. Denies diaphoresis. Respiratory: Occasional shortness of breath. Denies inspirational chest discomfort. Denies coughing wheezing or hemoptysis. GI: Patient denies nausea, vomiting, diarrhea, abdominal pain, bloody stools. Musculoskeletal: Patient denies joint pain or edema. Denies calf pain or edema. Neurovascular: Patient denies numbness, tingling, weakness in extremities. Denies headache. Endocrine: Denies polyuria and polydipsia. Hematologic: Denies easy bruising. Skin: Denies rash or itching. Past Family Social History Allergies: Coded Allergies: No Known Allergies (Unverified , 05/03/17) Past Medical History Denies hypertension, hyperlipidemia, diabetes, and known CAD. Past Surgical History Denies. Reported Medications Reported Meds & Active Scripts Active No Active Prescriptions or Reported Medications Active Ordered Medications Current Medications Medications (Trade) Dose Ordered Sig/Karlo Route Start Time Stop Time Status Last Admin (NS Flush) 2 ml UNSCH PRN IV FLUSH 05/03/17 19:30 (NS Flush) 2 ml BID IV FLUSH 05/03/17 21:00 Family History Denies family history of CAD. Social History Patient smokes occasional marijuana. Denies alcohol or tobacco products. Physical Exam Vital Signs Vital Signs Date Time Temp Pulse Resp B/P Pulse Ox O2 Delivery O2 Flow Rate FiO2 05/04/17 08:00 99 05/04/17 07:50 96.6 70 17 114/76 99 05/04/17 05:15 98.0 60 18 105/50 100 05/04/17 04:00 55 05/04/17 00:06 98.2 73 19 109/73 99 05/04/17 00:00 60 05/03/17 20:58 98.0 66 17 105/55 100 05/03/17 19:25 70 14 122/60 100 Room Air 05/03/17 18:16 98.0 89 22 122/96 99 Room Air Physical Exam GENERAL: This is a well-nourished, well-developed patient, in no apparent distress. Patient speaks in clear complete sentences. Patient is pleasant. HEENT: Head is atraumatic and normocephalic. Neck is supple without lymphadenopathy and trachea is midline. No JVD or carotid bruits. CARDIOVASCULAR: Regular rate and rhythm without murmurs, gallops, or rubs. RESPIRATORY: Clear to auscultation. Breath sounds equal bilaterally. No wheezes , rales, or rhonchi. Chest wall is nontender. No use of accessory muscles. GASTROINTESTINAL: Abdomen is nontender, nondistended. Abdomen soft. No obvious pulsatile mass or bruit. No CVA tenderness. Strong femoral pulses bilaterally. Normal bowel sounds in all quadrants. MUSCULOSKELETAL: Patient is moving upper and lower extremities freely. No calf tenderness or edema, no Homans sign. Strong pulses in upper and lower extremities. NEUROLOGICAL: Patient is alert and oriented. Cranial nerves 2-12 are grossly intact. No focal deficits and speech is clear. SKIN: No rash and turgor is normal. Laboratory Laboratory Tests Test 05/03/17 05/03/17 05/04/17 19:42 22:10 01:05 Total Creatine Kinase 104 84 109 Creatine Kinase MB 0.8 0.6 Troponin I LESS THAN 0.02 LESS THAN 0.02 LESS THAN 0.02 Imaging Last 48 hours Impressions Chest X-Ray 05/03/17 7227 Signed Impressions: Service Date/Time: April 19:14 - CONCLUSION: No acute disease. Saúl Henderson MD Course EKGs demonstrate sinus rhythm to sinus bradycardia without significant ST segment depressions or elevations. Assessment and Plan Assessment and Plan * Atypical chest pain: Patient has had serial cardiac enzymes and EKGs for ruling out purposes. She has been seen by Dr. Eliceo Schrader of cardiology and the chest pain center. We will give Toradol IV reassessed but likely be discharged afterwards. She should follow local primary care physician. Patient is stable this time. She is agreeable to this plan. Sarbjit Polanoc May 04, 2017 08:36
--- NOTE | 2017-05-04 09:55 | HHI.DCPOC ---
Discharge Care Plan Diagnosis: (1) Chest pain, atypical Goals to Promote Your Health * To prevent worsening of your condition and complications * To maintain your health at the optimal level Directions to Meet Your Goals Take your medications as prescribed Follow your dietary instruction Follow activity as directed Keep your appointments as scheduled Take your immunizations and boosters as scheduled If your symptoms worsen call your PCP, if no PCP go to Urgent Care Center or Emergency Room Smoking is Dangerous to Your Health. Avoid second hand smoke Call the 24-hour hour crisis hotline for domestic abuse at Sarbjit Polanco May 04, 2017 09:55
--- NOTE | 2017-05-04 11:33 | EKG ---
Date Performed: 05/04/2017 Time Performed: 01:06:58 PTAGE: 21 years EKG: SINUS BRADYCARDIA WITH SINUS ARRHYTHMIA POSSIBLE LEFT ATRIAL ENLARGEMENT NONSPECIFIC T-WAVE ABNORMALITY BORDERLINE ECG NO SIGNIFICANT CHANGE FROM PRIOR ELECTROCARDIOGRAM. PREVIOUS TRACING : 05/03/2017 22.02 DOCTOR: Jn Mead Interpretating Date/Time 05/04/2017 11:31:44
--- NOTE | 2017-05-04 11:35 | EKG ---
Date Performed: 05/03/2017 Time Performed: 22:02:10 PTAGE: 21 years EKG: Sinus rhythm NONSPECIFIC T-WAVE ABNORMALITY BORDERLINE ECG NO SIGNIFICANT CHANGE FROM PRIOR ELECTROCARDIOGRAM. PREVIOUS TRACING : 05/03/2017 19.05 DOCTOR: Jn Mead Interpretating Date/Time 05/04/2017 11:34:51
== END 2017-05-04 10:50 | disposition home or self-care (01) ==
LOC: NEPD 18:14 → NEDA 19:30 → NEPFCDU 20:52
PROVIDERS: ADMIT Internal Medicine Cardiovascular Disease; ATTEND Internal Medicine Cardiovascular Disease
DX: R07.89 Other chest pain (principal); R00.1 Bradycardia, unspecified; R06.02 Shortness of breath; R00.2 Palpitations; I49.8 Other specified cardiac arrhythmias; R94.31 Abnormal electrocardiogram [ECG] [EKG]; R61 Generalized hyperhidrosis; R11.10 Vomiting, unspecified; F32.9 Major depressive disorder, single episode, unspecified; F41.9 Anxiety disorder, unspecified; F12.90 Cannabis use, unspecified, uncomplicated
CPT/HCPCS: 71010; 82550; 82552; 84484; 93005; 99285; G0378; J1885

== ENCOUNTER 2017-06-08 08:16 | Emergency (ER) | payer SELFPAY ==
[~2017-06-08] VITALS: Ht 157.5 cm; Wt 60.0 kg
[2017-06-08 08:17] VITALS: BP 129/62; PULSE 57; RESP 15; TEMP 98.3; O2SAT 98
[2017-06-08 09:15] LABS: BLOOD, URINE NEG (NEG); GLUCOSE,URINE NEG (NEG); KETONE, URINE NEG (NEG); NITRITE,URINE NEG (NEG); SQUAMOUS EPITHELIAL CELL URINE 4 /hpf (0-5); URINE COLOR LIGHT-YELLOW (YELLW/STRAW)
[2017-06-08 09:17] LABS: COMMENT (UR) CULT NOT INDICATED; CULTURE IF INDICATED CULT NOT INDICATED
[2017-06-08] MEDS ORDERED: DIFL150T PO (09:20)
--- NOTE | 2017-06-08 09:21 | PD ---
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 Seen by Provider: 08:44 Travel History International Travel<30 days: No Contact w/Intl Traveler<30days: No Traveled to known affect area: No History of Present Illness HPI C/O WHITE D/C OVER PAST 2 DAYS, CONCERN ABOUT STD, BECAUSE SHE HAD UNPROTECTED SEX ABOUT SAME NUMBER OF DAYS AGO...DENIES ANY ABD PAIN/ PFSH Past Medical History Hx Anticoagulant Therapy: No Blood Disorders: No Anxiety: Yes Depression: Yes Cancer: No Cardiovascular Problems: No Chemotherapy: No Cerebrovascular Accident: No Diabetes: No Diminished Hearing: No Endocrine: No Genitourinary: No Immune Disorder: No Neurologic: No Psychiatric: Yes Reproductive: No Respiratory: No Immunizations Current: Yes ?: Unknown LMP: 06/01/17 Menopausal: No : 1 Para: 0 Miscarriage: 1 Past Surgical History Hysterectomy: No Other Surgery: No Social History Alcohol Use: Yes (RARELY) Tobacco Use: No Substance Use: Yes (MARIJUANA occ ) Allergies-Medications (Allergen,Severity, Reaction): Coded Allergies: No Known Allergies (Unverified , 06/08/17) Reported Meds & Prescriptions Reported Meds & Active Scripts Active Diflucan (Fluconazole) 150 Mg Tab 150 Mg PO ONCE Review of Systems Except as stated in HPI: all other systems reviewed are Neg Genitourinary: Positive: Discharge Physical Exam Narrative GENERAL: SKIN: Warm and dry. HEAD: Atraumatic. Normocephalic. EYES: Pupils equal and round. No scleral icterus. No injection or drainage. ENT: No nasal bleeding or discharge. Mucous membranes pink and moist. NECK: Trachea midline. No JVD. CARDIOVASCULAR: Regular rate and rhythm. RESPIRATORY: No accessory muscle use. Clear to auscultation. Breath sounds equal bilaterally. GASTROINTESTINAL: Abdomen soft, non-tender, nondistended. PELVIC EXAM WITH EDA BAZAN AT BEDSIDE SAMPLES COLLECTED, NEG CMT, WHITE CURDY DC C/W YEAST MUSCULOSKELETAL: Extremities without clubbing, cyanosis, or edema. No obvious deformities. NEUROLOGICAL: Awake and alert. No obvious cranial nerve deficits. Motor grossly within normal limits. Five out of 5 muscle strength in the arms and legs. Normal speech. PSYCHIATRIC: Appropriate mood and affect; insight and judgment normal. Data Data Last Documented VS Vital Signs Date Time Temp Pulse Resp B/P Pulse Ox O2 Delivery O2 Flow Rate FiO2 06/08/17 08:41 61 16 06/08/17 08:17 98.3 129/62 98 Orders Gc And Chlamydia Pcr (06/08/17 08:44) Wet Prep Profile (06/08/17 08:44) Urinalysis - C+S If Indicated (06/08/17 08:44) Ed Urine Pregnancytest Poc (06/08/17 08:44) Labs Laboratory Tests Test 06/08/17 09:02 Urine Color LIGHT-YELLOW Urine Turbidity CLEAR Urine pH 7.0 Urine Specific [facility] 1.009 Urine Protein NEG mg/dL Urine Glucose (UA) NEG mg/dL Urine Ketones NEG mg/dL Urine Occult Blood NEG Urine Nitrite NEG Urine Bilirubin NEG Urine Urobilinogen LESS THAN 2.0 MG/DL Urine Leukocyte Esterase SMALL Urine RBC LESS THAN 1 /hpf Urine WBC 2 /hpf Urine Squamous Epithelial 4 /hpf Cells Microscopic Urinalysis Comment CULT NOT INDICATED MDM Medical Decision Making Medical Screen Exam Complete: Yes Emergency Medical Condition: Yes Medical Record Reviewed: Yes Differential Diagnosis PREG RELATED V UTI V STD Narrative Course PATIENT STABLE AND WITHOUT ANY DIFFICULTY AT THIS MOMENT, PATIENT NEG HCG. NO VAGINAL BLEEDING. PATIENT WILL BE D/C ON DIFLUCAN AND HAVE SAMPLES PENDING RESULT Diagnosis Primary Impression: Madhuri vaginitis Scripts Fluconazole (Diflucan)150 Mg Pms013 Mg PO ONCE #1 TAB Prov:Herbie Alfred MD 06/08/17 Disposition: 01 DISCHARGE HOME Condition: Stable Herbie Alfred MD Jun 08, 2017 09:21
[2017-06-08 11:54] LABS: CHLAMYDIA PCR NOT DETECTED (NOT DETECT); NEISSERIA PCR DETECTED (NOT DETECT)
== END 2017-06-08 09:39 | disposition home or self-care (01) ==
LOC: NEPE 08:16
DX: B37.3 Candidiasis of vulva and vagina (principal)
CPT/HCPCS: 81001; 84703; 87210; 87491; 87591; 99283

== ENCOUNTER 2017-06-11 11:00 | Emergency (ER) | payer SELFPAY ==
[~2017-06-11] VITALS: Ht 157.5 cm; Wt 55.0 kg
[~2017-06-11 11:00] MED LIST changes: -BACT800T5 PO; +DIFL150T PO
--- NOTE | 2017-06-11 11:14 | PD ---
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 Patient denies vaginal discharge, odor, itch, lesions. Denies dysuria. Denies pelvic pain or abdominal pain. Denies fever, vomiting. Reports recent exposure to gonorrhea. Has no other medical complaints. Symptoms are mild in severity. No known allergies. No other modifying factors or associated signs and symptoms. PFSH Past Medical History Hx Anticoagulant Therapy: No Blood Disorders: No Anxiety: Yes Depression: Yes Cancer: No Cardiovascular Problems: No Chemotherapy: No Cerebrovascular Accident: No Diabetes: No Diminished Hearing: No Endocrine: No Genitourinary: No Immune Disorder: No Neurologic: No Psychiatric: Yes Reproductive: No Respiratory: No Immunizations Current: Yes ?: Not LMP: 05/24/17 Menopausal: No : 1 Para: 0 Miscarriage: 1 Past Surgical History Hysterectomy: No Other Surgery: No Social History Alcohol Use: Yes (RARELY) Tobacco Use: No Substance Use: Yes (MARIJUANA occ ) Allergies-Medications (Allergen,Severity, Reaction): Coded Allergies: No Known Allergies (Unverified , 06/11/17) Reported Meds & Prescriptions Reported Meds & Active Scripts Active Diflucan (Fluconazole) 150 Mg Tab 150 Mg PO ONCE Review of Systems Except as stated in HPI: all other systems reviewed are Neg Physical Exam Narrative GENERAL: Well-nourished, well-developed female patient, in no acute distress; afebrile, nontoxic-appearing SKIN: Warm and dry. HEAD: Atraumatic. Normocephalic. EYES: Pupils equal and round. No scleral icterus. No injection or drainage. ENT: Mucosa pink and moist. Airway patent. NECK: Trachea midline. CARDIOVASCULAR: Regular rate. RESPIRATORY: No accessory muscle use. GASTROINTESTINAL: Abdomen soft, non-tender, nondistended. Hepatic and splenic margins not palpable. Bowel sounds are active 4 quadrants. MUSCULOSKELETAL: No obvious deformities. No clubbing. No cyanosis. No edema. NEUROLOGICAL: Awake and alert. Oriented 3. No obvious cranial nerve deficits. Motor grossly within normal limits. Normal speech. PSYCHIATRIC: Appropriate mood and affect; insight and judgment normal. Data Data Last Documented VS Vital Signs Date Time Temp Pulse Resp B/P Pulse Ox O2 Delivery O2 Flow Rate FiO2 06/11/17 12:03 98.0 68 15 132/80 97 Orders Azithromycin Powd Pack (Zithromax Powd P (06/11/17 11:15) Ceftriaxone Inj (Rocephin Inj) (06/11/17 11:15) Lidocaine 1% Inj (50 Ml) (Xylocaine 1% I (06/11/17 11:15) MDM Medical Decision Making Medical Screen Exam Complete: Yes Emergency Medical Condition: Yes Medical Record Reviewed: Yes Differential Diagnosis Gonorrhea, medical clearance, STD treatment Narrative Course 21-year-old female presents for treatment for gonorrhea. She was seen on June 08 and test positive for gonorrhea. She was called to return to the ER for treatment. Rocephin and azithromycin administered in the ER. Instructed patient to follow up with [facility], [facility], or gynecology. Instructed patient to follow up with primary care provider. Patient verbalizes understanding and agreement with treatment plan. Patient is medically cleared and stable for discharge. Discussed reasons to return to the emergency department. Patient agrees with treatment plan. The patients vital signs are stable and the patient is stable for outpatient follow-up and treatment. Patient discharged home, stable and in no acute distress. Diagnosis Primary Impression: Gonorrhea Referrals: [facility] Primary Care Physician [facility] Dept. Patient Instructions: General Instructions, Gonorrhea (ED) Additional Instructions: Avoid sexual activity until you follow up with your primary care provider Inform all sexual partners within the past 3-6 months that they need to be evaluated and treated Use condoms every time you have sex Follow-up with primary care provider Follow-up at [facility] comes Follow-up at health department Return to the emergency department immediately with worsening of symptoms Disposition: 01 DISCHARGE HOME Condition: Stable Grace Hubbard Jun 11, 2017 11:14
[2017-06-11] MEDS ORDERED: AZITHROMYCIN PWD FOR SUSP 1 GM PACKET PO ONE (11:15)
[2017-06-11] MEDS ORDERED: cefTRIAXone 250 MG VIAL IM ONE (11:15)
[2017-06-11] MEDS ORDERED: LIDOCAINE HCL 1% 50 ML VIAL IM ONE (11:15)
[2017-06-11 12:03] VITALS: BP 132/80; TEMP 98
== END 2017-06-11 12:13 | disposition home or self-care (01) ==
LOC: NEPK 11:00
DX: A54.02 Gonococcal vulvovaginitis, unspecified (principal)
CPT/HCPCS: 96372; 99284; J0696

== ENCOUNTER 2017-06-18 19:10 | Emergency (ER) | payer SELFPAY ==
[~2017-06-18] VITALS: Ht 167.6 cm; Wt 55.0 kg
[2017-06-18 19:13] VITALS: BP 124/67; PULSE 61; TEMP 98.3; O2SAT 100
--- NOTE | 2017-06-18 19:40 | PD ---
Physical Exam Time Seen by Provider: 19:37 Narrative 21yo F c/o lower abd pain started this morning. Says it felt like hunger pains. Says she doesn't really have pain now. Pain comes and goes. Denies dysuria. +N w/o vomiting. Edmund diarrhea, constipated. LMP June 01. Patient seen in triage. VS reviewed. Awaiting bed placement. Data Data Last Documented VS Vital Signs Date Time Temp Pulse Resp B/P Pulse Ox O2 Delivery O2 Flow Rate FiO2 06/18/17 19:13 98.3 61 124/67 100 Room Air MDM Supervised Visit with AMARI: Grace Molina Jun 18, 2017 19:40
[2017-06-19] MEDS ORDERED: DOXY100C PO (12:17)
== END 2017-06-18 23:08 | disposition left against medical advice (07) ==
LOC: NED 19:10
DX: R10.30 Lower abdominal pain, unspecified (principal)
CPT/HCPCS: 99281

== ENCOUNTER 2017-06-19 10:12 | Emergency (ER) | payer SELFPAY ==
[~2017-06-19] VITALS: Ht 157.5 cm; Wt 60.0 kg
[2017-06-19 10:12] VITALS: BP 111/62; PULSE 68; RESP 14; TEMP 98.4; O2SAT 100
[2017-06-19 11:06] LABS: BACTERIA, URINE RARE /hpf; BLOOD, URINE NEG (NEG); COMMENT (UR) CULT NOT INDICATED; CULTURE IF INDICATED CULT NOT INDICATED; GLUCOSE,URINE NEG (NEG); HYALINE CAST, URINE 2 /lpf (RARE); KETONE, URINE NEG (NEG); MUCUS URINE FEW /lpf (OCC); NITRITE,URINE NEG (NEG); PH, URINE 6.5 (5.0-8.5); SQUAMOUS EPITHELIAL CELL URINE 12 /hpf (0-5); URINE COLOR YELLOW (YELLW/STRAW)
--- NOTE | 2017-06-19 11:16 | PD ---
HPI . pelvic pain x few days Chief Complaint: Abdominal Pain Time Seen by Provider: 11:16 Travel History International Travel<30 days: No Contact w/Intl Traveler<30days: No Traveled to known affect area: No History of Present Illness HPI 21-year-old female here with complaints of pelvic pain for the past several days. On June 08, 2017 patient presented to the emergency department with complaints of white vaginal discharge. She was diagnosed with candidiasis vaginitis and treated with Diflucan. She did have gonorrhea and Chlamydia PCR done, and was contacted following day until she had gonorrhea positive. She then presented to the emergency department on June 11, 2017 and received Rocephin and azithromycin. Today she is here complaining of pelvic pain. She says that occasionally she is a sharp pain mainly located in the left lower side of her pelvis, however it sometimes seems to move. She denies any recent unprotected sex. She tells me that both her and her partner have been treated for gonorrhea. Her boyfriend and sister were in the exam room and she tells me it is ok for them both to be present during our discussion. They left the room for her pelvic exam. She denies any fevers or chills. She has no other complaints. PFSH Past Medical History Hx Anticoagulant Therapy: No Blood Disorders: No Anxiety: Yes Depression: Yes Cancer: No Cardiovascular Problems: No Chemotherapy: No Cerebrovascular Accident: No Diabetes: No Diminished Hearing: No Endocrine: No Genitourinary: No Immune Disorder: No Neurologic: No Psychiatric: Yes Reproductive: No Respiratory: No Immunizations Current: Yes ?: Unknown LMP: 06-01-17 Menopausal: No : 1 Para: 0 Miscarriage: 1 Past Surgical History Hysterectomy: No Other Surgery: No Social History Alcohol Use: Yes (RARELY) Tobacco Use: No Substance Use: Yes (MARIJUANA occ ) Allergies-Medications (Allergen,Severity, Reaction): Coded Allergies: No Known Allergies (Unverified , 06/19/17) Reported Meds & Prescriptions Reported Meds & Active Scripts Active Doxycycline Hyclate 100 Mg Cap 100 Mg PO BID Diflucan (Fluconazole) 150 Mg Tab 150 Mg PO ONCE Review of Systems General / Constitutional: No: Fever Eyes: No: Visual changes HENT: No: Headaches Cardiovascular: No: Chest Pain or Discomfort Respiratory: No: Shortness of Breath Gastrointestinal: No: Abdominal Pain Genitourinary: Positive: Discharge, No: Dysuria Musculoskeletal: No: Pain Skin: No Rash Neurologic: No: Weakness Psychiatric: No: Depression Endocrine: No: Polydipsia Hematologic/Lymphatic: No: Easy Bruising Physical Exam Narrative GENERAL: AAO x 3, no acute distress, Well-nourished, well-developed patient. SKIN: Warm and dry. No visible rashes or bruising. HEAD: Normocephalic and atraumatic. EYES: No scleral icterus. No injection or drainage. ENT: No nasal drainage noted. Mucous membranes pink. Airway patent. NECK: Supple, trachea midline. No JVD. CARDIOVASCULAR: Regular rate and rhythm without murmurs, gallops, or rubs. RESPIRATORY: Breath sounds equal bilaterally. No accessory muscle use. No rhonchi or rales. GASTROINTESTINAL: Abdomen soft, non-tender, nondistended. PELVIC: Shaye VERAS present: + mucoid slight yellow tint discharge from cervix, + + cervical motion tenderness, EXTREMITIES: No cyanosis or edema. BACK: No obvious deformity. NEURO: CN II-12 intact, supervisory geographer strength normal b/l, UE and LE 5/5, no focal deficits PSYCH: AAO x 3, normal affect. Data Data Last Documented VS Vital Signs Date Time Temp Pulse Resp B/P Pulse Ox O2 Delivery O2 Flow Rate FiO2 06/19/17 10:12 98.4 68 14 111/62 100 Room Air Orders Urinalysis - C+S If Indicated (06/19/17 10:17) Ed Urine Pregnancytest Poc (06/19/17 10:17) Gc And Chlamydia Pcr (06/19/17 11:37) Wet Prep Profile (06/19/17 11:37) Lidocaine 1% Inj (50 Ml) (Xylocaine 1% I (06/19/17 12:45) Ceftriaxone Inj (Rocephin Inj) (06/19/17 12:45) Labs Laboratory Tests Test 06/19/17 06/19/17 10:15 11:35 Urine Color YELLOW Urine Turbidity HAZY Urine pH 6.5 Urine Specific [place] 1.023 Urine Protein TRACE mg/dL Urine Glucose (UA) NEG mg/dL Urine Ketones NEG mg/dL Urine Occult Blood NEG Urine Nitrite NEG Urine Bilirubin NEG Urine Urobilinogen 2.0 MG/DL Urine Leukocyte Esterase TRACE Urine RBC 1 /hpf Urine WBC 6 /hpf Urine Squamous Epithelial 12 /hpf Cells Urine Bacteria RARE /hpf Urine Hyaline Casts 2 /lpf Urine Mucus FEW /lpf Microscopic Urinalysis Comment CULT NOT INDICATED Clue Cells (Wet Prep) NONE SEEN Vaginal Trichomonas (Wet Prep) NONE SEEN Vaginal Yeast (Wet Prep) NONE SEEN MDM Medical Decision Making Medical Screen Exam Complete: Yes Emergency Medical Condition: Yes Medical Record Reviewed: Yes Differential Diagnosis PID, reinfection with gonorrhea, chlamydia, janet, bacterial vaginosis Narrative Course 21 yr old female here with pelvic pain and vaginal discharge. She was recently treated for gonorrhea with azithromycin and rocephin. I think she may be reinfected. I also think she has PID. Laboratory Tests Test 06/19/17 06/19/17 10:15 11:35 Urine Color YELLOW Urine Turbidity HAZY Urine pH 6.5 Urine Specific [place] 1.023 Urine Protein TRACE mg/dL Urine Glucose (UA) NEG mg/dL Urine Ketones NEG mg/dL Urine Occult Blood NEG Urine Nitrite NEG Urine Bilirubin NEG Urine Urobilinogen 2.0 MG/DL Urine Leukocyte Esterase TRACE Urine RBC 1 /hpf Urine WBC 6 /hpf Urine Squamous Epithelial 12 /hpf Cells Urine Bacteria RARE /hpf Urine Hyaline Casts 2 /lpf Urine Mucus FEW /lpf Microscopic Urinalysis Comment CULT NOT INDICATED Clue Cells (Wet Prep) NONE SEEN Vaginal Trichomonas (Wet Prep) NONE SEEN Vaginal Yeast (Wet Prep) NONE SEEN I discussed the negative wet prep patient. I did discuss PID and recommended treatment with Rocephin and outpatient doxycycline. She was in agreement with the recommended treatment plan. Advised her that she will need to establish with primary care provider and possibly follow-up with dining service inspector. I recommend safe sex practices. Diagnosis Primary Impression: PID (acute pelvic inflammatory disease) Referrals: [facility] Patient Instructions: General Instructions Additional Instructions: Please return to emergency department if your symptoms return or worsen. Follow up with your primary care provider. Take medications as prescribed. Med/Other Pt SpecificInfo: Prescription(s) given Scripts Doxycycline Hyclate 100 Mg Ppa640 Mg PO BID #20 CAP Ref 0 Prov:Bang Ramsey MD 06/19/17 Disposition: 01 DISCHARGE HOME Condition: Stable Stephany Rubio Jun 19, 2017 11:16
[2017-06-19] MEDS ORDERED: DOXY100C PO (12:17)
[2017-06-19] MEDS ORDERED: cefTRIAXone 250 MG VIAL IM ONE (12:45)
[2017-06-19] MEDS ORDERED: LIDOCAINE HCL 1% 50 ML VIAL IM ONE (12:45)
[2017-06-19 13:46] LABS: CHLAMYDIA PCR NOT DETECTED (NOT DETECT); NEISSERIA PCR NOT DETECTED (NOT DETECT)
== END 2017-06-19 13:48 | disposition home or self-care (01) ==
LOC: NEPD 10:12
DX: N73.9 Female pelvic inflammatory disease, unspecified (principal)
CPT/HCPCS: 81001; 84703; 87210; 87491; 87591; 96372; 99284; J0696

== ENCOUNTER 2017-07-17 09:09 | Emergency (ER) | payer SELFPAY ==
[~2017-07-17] VITALS: Ht 157.5 cm; Wt 60.0 kg
[~2017-07-17 09:09] MED LIST changes: +DOXY100C PO
[2017-07-17 09:11] VITALS: BP 128/73; PULSE 83; RESP 16; TEMP 98.4; O2SAT 98
--- NOTE | 2017-07-17 09:53 | PD ---
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 She states that her last period was due on June 29 and it just came this this week. She states she's been passing clots and was concerned that she may be miscarrying. She reports mild abdominal cramping consistent with her menstrual cycle. She has no other complaints at this time. PFSH Past Medical History Hx Anticoagulant Therapy: No Blood Disorders: No Anxiety: Yes Depression: Yes Cancer: No Cardiovascular Problems: No Chemotherapy: No Cerebrovascular Accident: No Diabetes: No Diminished Hearing: No Endocrine: No Genitourinary: No Immune Disorder: No Neurologic: No Psychiatric: Yes Reproductive: Yes (gonorrhea, PID) Respiratory: No Immunizations Current: Yes ?: Unknown Menopausal: No : 1 Para: 0 Miscarriage: 1 Past Surgical History Hysterectomy: No Other Surgery: No Social History Alcohol Use: Yes (RARELY) Tobacco Use: No Substance Use: Yes (MARIJUANA occ ) Allergies-Medications (Allergen,Severity, Reaction): Coded Allergies: No Known Allergies (Unverified , 07/17/17) Reported Meds & Prescriptions Reported Meds & Active Scripts Active No Active Prescriptions or Reported Medications Review of Systems Except as stated in HPI: all other systems reviewed are Neg Genitourinary: Positive: Pelvic Pain (cramping), Vaginal Bleeding Physical Exam Narrative GENERAL: Well-developed, well-nourished, alert female. Resting comfortably in no acute distress. SKIN: Warm and dry. HEAD: Normocephalic. EYES: No scleral icterus. No injection or drainage. NECK: Supple, trachea midline. No JVD or lymphadenopathy. CARDIOVASCULAR: Regular rate and rhythm without murmurs, gallops, or rubs. RESPIRATORY: Breath sounds equal bilaterally. No accessory muscle use. GASTROINTESTINAL: Abdomen soft, non-tender, nondistended. Positive bowel sounds , no rebound, no guarding. MUSCULOSKELETAL: No cyanosis, or edema. BACK: Nontender without obvious deformity. No CVA tenderness. Data Data Last Documented VS Vital Signs Date Time Temp Pulse Resp B/P (MAP) Pulse Ox O2 Delivery O2 Flow Rate FiO2 07/17/17 09:33 16 07/17/17 09:11 98.4 83 128/73 (91) 98 MDM Medical Decision Making Medical Screen Exam Complete: Yes Emergency Medical Condition: No Interpretation(s) Vital Signs Date Time Temp Pulse Resp B/P (MAP) Pulse Ox O2 Delivery O2 Flow Rate FiO2 07/17/17 09:33 16 07/17/17 09:11 98.4 83 16 128/73 (91) 98 Differential Diagnosis Threatened versus miscarriage versus menstrual cycle versus other Narrative Course Patient is a 21-year-old female that presented to the emergency for evaluation of possible miscarriage. She denies any vaginal discharge. A urine test was performed and it was negative. Patient that her test would be positive even if she had been miscarrying. Discussed the patient the possible reasons for dysfunctional uterine bleeding. She was encouraged to follow-up with a bowling ball patcher if her cycles continued to be off. She was encouraged strongly to return to emergency department for any new or worsening symptoms. At this time there is no emergency medical condition is patient has her menstrual cycle. A medical screening exam was performed: At the time of evaluation the presenting medical condition was determined not to be of an emergent nature. The patient was given the option of receiving additional care, but declined. Patient was given options for additional community resources from which to obtain care. The Patient Has Been advised to seek medical attention for their presenting complaint. The patient has been advised to return to the ER at any time if an emergent condition develops. Diagnosis Primary Impression: Encounter for medical screening examination Scripts No Active Prescriptions or Reported Meds Condition: Kiera Ramirez Jul 17, 2017 09:53
== END 2017-07-17 09:12 | disposition left against medical advice (07) ==
LOC: NEPD 09:09
DX: Z00.8 Encounter for other general examination (principal); N93.9 Abnormal uterine and vaginal bleeding, unspecified
CPT/HCPCS: 99281

== ENCOUNTER 2017-10-21 15:22 | Emergency (ER) | payer SELFPAY ==
[~2017-10-21] VITALS: Ht 157.5 cm; Wt 60.0 kg
[2017-10-21 15:23] VITALS: BP 122/62; PULSE 80; RESP 16; TEMP 98.6; O2SAT 99
--- NOTE | 2017-10-21 17:09 | PD ---
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 Patient states that she ended her cycle earlier this month but noticed small amount of bright red blood in her panties today. She states the bleeding has now stopped. She denies fevers, chills, nausea, vomiting, chest pain, shortness of breath, abdominal pain, dysuria, hematuria, vaginal discharge , vaginal trauma, back pain. She denies history of anemia or iron deficiency. States that she is otherwise feeling well. PFSH Past Medical History Hx Anticoagulant Therapy: No Blood Disorders: No Anxiety: Yes Depression: Yes Cancer: No Cardiovascular Problems: No Chemotherapy: No Cerebrovascular Accident: No Diabetes: No Diminished Hearing: No Endocrine: No Genitourinary: No Immune Disorder: No Neurologic: No Psychiatric: Yes Reproductive: Yes (gonorrhea, PID) Respiratory: No Immunizations Current: Yes ?: Not LMP: 10/2017 Menopausal: No : 1 Para: 0 Miscarriage: 1 Past Surgical History Hysterectomy: No Other Surgery: No Social History Alcohol Use: Yes (RARELY) Tobacco Use: No Substance Use: Yes (MARIJUANA occ ) Allergies-Medications (Allergen,Severity, Reaction): Coded Allergies: No Known Allergies (Unverified Adverse Reaction, Unknown, 10/21/17) Reported Meds & Prescriptions Reported Meds & Active Scripts Active No Active Prescriptions or Reported Medications Review of Systems Except as stated in HPI: all other systems reviewed are Neg Physical Exam Narrative GENERAL: Well-nourished, well-developed female in no acute distress. SKIN: Focused skin assessment warm/dry. HEAD: Normocephalic. EYES: No scleral icterus. No injection or drainage. NECK: Supple, trachea midline. No JVD or lymphadenopathy. CARDIOVASCULAR: Regular rate and rhythm without murmurs, gallops, or rubs. RESPIRATORY: Breath sounds clear and equal bilaterally. No accessory muscle use. GASTROINTESTINAL: Abdomen soft, non-tender, nondistended. Active bowel sounds. MUSCULOSKELETAL: No cyanosis, or edema. BACK: Nontender without obvious deformity. No CVA tenderness. Data Data Last Documented VS Vital Signs Date Time Temp Pulse Resp B/P (MAP) Pulse Ox O2 Delivery O2 Flow Rate FiO2 10/21/17 17:15 10/21/17 15:23 98.6 80 16 99 Orders Orders Ed Urine Pregnancytest Poc (10/21/17 16:20) Ed Discharge Order (10/21/17 17:10) MDM Medical Decision Making Medical Screen Exam Complete: Yes Emergency Medical Condition: Yes Differential Diagnosis Dysmenorrhea versus vaginal trauma versus UTI versus versus other Narrative Course 21-year-old female presents to the ED for evaluation of irregular menstrual bleeding. Patient states that she ended her cycle earlier this month but noticed small amount of bright red blood in her panties today. She states the bleeding has now stopped. She denies fevers, chills, nausea, vomiting, chest pain, shortness of breath, abdominal pain, dysuria, hematuria, vaginal discharge , vaginal trauma, back pain. She denies history of anemia or iron deficiency. States that she is otherwise feeling well. Vitals reviewed. Physical exam is very reassuring. I offered the patient a pelvic exam which she refuses at this time. I discussed dysmenorrhea with the patient and encouraged her to follow up with the sales representative gas service for further evaluation. She indicated understanding of instructions and is agreeable care plan. She stable and discharged home. Diagnosis Primary Impression: Dysmenorrhea Referrals: Anode Adjuster Patient Instructions: Dysmenorrhea (ED), General Instructions Additional Instructions: Follow-up with the sales representative gas service as discussed. Return to the ED for any urgent or emergent medical condition. Scripts No Active Prescriptions or Reported Meds Disposition: 01 DISCHARGE HOME Condition: Stable Dayanara Kirby Oct 21, 2017 17:09
== END 2017-10-21 17:15 | disposition home or self-care (01) ==
LOC: NEPD 15:22
DX: N94.6 Dysmenorrhea, unspecified (principal); F41.9 Anxiety disorder, unspecified; F32.9 Major depressive disorder, single episode, unspecified
CPT/HCPCS: 84703; 99282

== ENCOUNTER 2018-03-04 18:19 | Emergency (ER) | payer SELFPAY ==
[~2018-03-04] VITALS: Ht 157.5 cm; Wt 56.8 kg
[2018-03-04 18:21] VITALS: BP 119/55; PULSE 73; RESP 18; TEMP 97.8; O2SAT 96
--- NOTE | 2018-03-04 19:38 | RADRPT ---
EXAM DATE/TIME: 03/04/2018 19:27 [facility] COMPARISON: No previous studies available for comparison. INDICATIONS : Trauma. Hit head on ground 2 days ago. RADIATION DOSE: 34.92 CTDIvol (mGy) MEDICAL HISTORY : None SURGICAL HISTORY : None. ENCOUNTER: Initial ACUITY: 2 days PAIN SCALE: 6/10 LOCATION: cranial TECHNIQUE: Multiple contiguous axial images were obtained of the head. Using automated exposure control and adj ustment of the mA and/or kV according to patient size, radiation dose was kept as low as reasonably a chievable to obtain optimal diagnostic quality images. DICOM format image data is available electro nically for review and comparison. FINDINGS: CEREBRUM: The ventricles are normal for age. No evidence of midline shift, mass lesion, hemorrhage or acute in farction. No extra-axial fluid collections are seen. POSTERIOR FOSSA: The cerebellum and brainstem are intact. The 4th ventricle is midline. The cerebellopontine angle i s unremarkable. EXTRACRANIAL: The visualized portion of the orbits is intact. SKULL: The calvaria is intact. No evidence of skull fracture. CONCLUSION: Normal examination for a patient of this age. Jason Garcia MD on March 04, 2018 at 19:34 Board Certified Radiologist. This report was verified electronically.
[2018-03-04] MEDS ORDERED: KETOROLAC TROMETHAMINE 30 MG/ML (IVP) VIAL IV PUSH ONE (19:45)
[2018-03-04] MEDS ORDERED: METOCLOPRAMIDE HCL 10 MG/2 ML VIAL IV PUSH ONE (19:45)
[2018-03-04] MEDS ORDERED: SODIUM CHLORIDE 0.9% FLUSH 10 ML FLUSH IV FLUSH PRN (19:45)
[2018-03-04] MEDS ORDERED: SODIUM CHLOR 0.9% 1000 ML INJ 1,000 ML IV SCH (19:45)
--- NOTE | 2018-03-04 19:48 | PD ---
HPI Chief Complaint: Head Injury Time Seen by Provider: 19:41 Travel History International Travel<30 days: No Contact w/Intl Traveler<30days: No Traveled to known affect area: No History of Present Illness HPI 22-year-old female here for evaluation of right-sided head pain that started 2 days ago after she struck her head against the ground while wrestling a friend/ family at home. She states that the paloma was carpeting, however there is hard cement underneath. She reports that her boyfriend told her that she had some generalized shaking after this occurred. The patient does not recall this event. She denies history of seizures. She has had persistent right-sided headache since this event. She took Kika aspirin this morning without relief of symptoms. Head pain is described as sharp/pressure, right-sided, 8 out of 10 , constant. Occasionally she has some blurry vision. No paresthesias or motor deficits. No neck or back pain. No other injuries. No fevers. No illicit drugs or IVDA. PFSH Past Medical History Hx Anticoagulant Therapy: No Blood Disorders: No Anxiety: Yes Depression: Yes Cancer: No Cardiovascular Problems: No Chemotherapy: No Cerebrovascular Accident: No Diabetes: No Patient Takes Glucophage: No Diminished Hearing: No Endocrine: No Genitourinary: No Immune Disorder: No Neurologic: No Psychiatric: Yes Reproductive: Yes (gonorrhea, PID) Respiratory: No Immunizations Current: Yes Tetanus Vaccination: > 5 Years Influenza Vaccination: No ?: Not LMP: on now Menopausal: No : 1 Para: 0 Miscarriage: 1 Past Surgical History Surgical History: No Previous Surgery Hysterectomy: No Other Surgery: No Social History Alcohol Use: Yes (RARELY) Tobacco Use: No Substance Use: Yes (HX MARIJUANA) Allergies-Medications (Allergen,Severity, Reaction): Coded Allergies: No Known Allergies (Unverified Adverse Reaction, Unknown, 03/04/18) Reported Meds & Prescriptions Reported Meds & Active Scripts Active No Active Prescriptions or Reported Medications Review of Systems Except as stated in HPI: all other systems reviewed are Neg Physical Exam Narrative GENERAL: Well-developed, well-nourished, comfortable, no apparent distress. SKIN: Focused skin assessment warm/dry. No lacerations, abrasions, or ecchymosis. HEAD: Atraumatic. Normocephalic. EYES: Pupils equal, round, 3 mm, reactive to light. EOMI. No scleral icterus. No injection or drainage. ENT: No nasal bleeding or discharge. Mucous membranes pink and moist. NECK: Trachea midline. No JVD. No midline cervical spine step-off or tenderness. CARDIOVASCULAR: Regular rate and rhythm. RESPIRATORY: No accessory muscle use. Clear to auscultation. Breath sounds equal bilaterally. GASTROINTESTINAL: Abdomen soft, non-tender, nondistended. Hepatic and splenic margins not palpable. MUSCULOSKELETAL: No obvious deformities. No clubbing. No cyanosis. No edema. NEUROLOGICAL: Awake and alert. No obvious cranial nerve deficits. Motor grossly within normal limits. Normal speech. PSYCHIATRIC: Appropriate mood and affect; insight and judgment normal. Data Data Last Documented VS Vital Signs Date Time Temp Pulse Resp B/P (MAP) Pulse Ox O2 Delivery O2 Flow Rate FiO2 03/04/18 18:21 97.8 73 18 119/55 (76) 96 Orders Orders Ed Urine Pregnancytest Poc (03/04/18 18:25) Ct Brain W/O Iv Contrast(Rout) (03/04/18 ) Urinalysis - C+S If Indicated (03/04/18 18:31) Complete Blood Count With Diff (03/04/18 19:45) Comprehensive Metabolic Panel (03/04/18 19:45) Iv Access Insert/Monitor (03/04/18 19:45) Ecg Monitoring (03/04/18 19:45) Oximetry (03/04/18 19:45) Sodium Chlor 0.9% 1000 Ml Inj (Ns 1000 M (03/04/18 19:45) Sodium Chloride 0.9% Flush (Ns Flush) (03/04/18 19:45) Metoclopramide Inj (Reglan Inj) (03/04/18 19:45) Ketorolac Inj (Toradol Inj) (03/04/18 19:45) Urine Culture (03/04/18 18:33) Diphenhydramine Inj (Benadryl Inj) (03/04/18 20:30) Labs Laboratory Tests Test 03/04/18 18:33 03/04/18 20:08 Urine Color YELLOW Urine Turbidity HAZY Urine pH 6.0 Urine Specific [place] 1.021 Urine Protein TRACE mg/dL Urine Glucose (UA) NEG mg/dL Urine Ketones NEG mg/dL Urine Occult Blood MOD Urine Nitrite NEG Urine Bilirubin NEG Urine Urobilinogen 2.0 MG/DL Urine Leukocyte Esterase LARGE Urine RBC 7 /hpf Urine WBC 39 /hpf Urine Squamous Epithelial Cells 39 /hpf Urine Transitional Epithelial Cells 1 /hpf Urine Amorphous Sediment RARE Urine Bacteria OCC /hpf Urine Mucus FEW /lpf Microscopic Urinalysis Comment CULTURE INDICATED White Blood Count 6.2 TH/MM3 Red Blood Count 4.68 MIL/MM3 Hemoglobin 14.1 GM/DL Hematocrit 42.4 % Mean Corpuscular Volume 90.6 FL Mean Corpuscular Hemoglobin 30.1 PG Mean Corpuscular Hemoglobin Concent 33.2 % Red Cell Distribution Width 12.7 % Platelet Count 238 TH/MM3 Mean Platelet Volume 8.6 FL Neutrophils (%) (Auto) 52.4 % Lymphocytes (%) (Auto) 38.1 % Monocytes (%) (Auto) 6.9 % Eosinophils (%) (Auto) 1.9 % Basophils (%) (Auto) 0.7 % Neutrophils # (Auto) 3.2 TH/MM3 Lymphocytes # (Auto) 2.4 TH/MM3 Monocytes # (Auto) 0.4 TH/MM3 Eosinophils # (Auto) 0.1 TH/MM3 Basophils # (Auto) 0.0 TH/MM3 CBC Comment DIFF FINAL Differential Comment Blood Urea Nitrogen 18 MG/DL Creatinine 0.85 MG/DL Random Glucose 80 MG/DL Total Protein 8.5 GM/DL Albumin 4.6 GM/DL Calcium Level 10.4 MG/DL Alkaline Phosphatase 70 U/L Aspartate Amino Transf (AST/SGOT) 23 U/L Alanine Aminotransferase (ALT/SGPT) 19 U/L Total Bilirubin 0.9 MG/DL Sodium Level 139 MEQ/L Potassium Level 3.7 MEQ/L Chloride Level 105 MEQ/L Carbon Dioxide Level 25.7 MEQ/L Anion Gap 8 MEQ/L Estimat Glomerular Filtration Rate 99 ML/MIN [facility] Medical Decision Making Medical Screen Exam Complete: Yes Emergency Medical Condition: Yes Medical Record Reviewed: Yes Differential Diagnosis Closed head injury, concussion, intracranial trauma Narrative Course Patient was written for Reglan and Toradol, and shortly after receiving Reglan had a slight dystonic reaction with anxiety which is likely secondary to Reglan. She was provided Benadryl. Initial vital signs show heart rate 73, blood pressure 119/55, pulse ox 96% on room air, ALT of 97.8F. CBC is unremarkable. CMP is remarkable for calcium 10.4, otherwise unremarkable. UA shows hematuria, epithelial cells, white blood cells, occasional bacteria. The patient is currently on her menstrual period and this is likely all a contaminant. She has no dysuria. Urine is negative. CT head: Normal exam for a patient of this age. Patient had a slight dystonic reaction to Reglan becoming very anxious and jittery. She was given Benadryl and on reassessment feels improved. Her headache is also resolved. She likely has a concussion. She is stable for discharge home with outpatient follow-up with a primary care physician this week. She was advised on when to return to the emergency department. She verbalizes understanding and agreement with plan. Diagnosis Primary Impression: Closed head injury Qualified Codes: S09.90XA - Unspecified injury of head, initial encounter Referrals: [facility] 3 days Additional Instructions: Follow-up with a primary care physician this week. Return to the emergency department for worsening symptoms or any other concerns. Scripts No Active Prescriptions or Reported Meds Disposition: 01 DISCHARGE HOME Condition: Stable Del Aly MD Mar 04, 2018 19:47
[2018-03-04 19:55] LABS: AMORPHOUS SEDIMENT, URINE RARE; BACTERIA, URINE OCC /hpf; BILIRUBIN, URINE NEG (NEG); BLOOD, URINE MOD (NEG); GLUCOSE,URINE NEG (NEG); KETONE, URINE NEG (NEG); MUCUS URINE FEW /lpf (OCC); NITRITE,URINE NEG (NEG); SQUAMOUS EPITHELIAL CELL URINE 39 /hpf (0-5); TRANSITIONAL EPI CELLS, URINE 1 /hpf; URINE COLOR YELLOW (YELLW/STRAW); URINE LEUKOCYTE ESTERASE LARGE (NEG)
[2018-03-04 20:23] LABS: AUTOMATED NEUTROPHIL # 3.2 TH/MM3 (1.8-7.7); BASOPHIL % 0.7 % (0.0-2.0); EOSINOPHIL # 0.1 TH/MM3 (0-0.4); EOSINOPHIL % 1.9 % (0.0-4.0); HEMATOCRIT 42.4 % (35.0-46.0); HEMOGLOBIN 14.1 GM/DL (11.6-15.3); LYMPH % 38.1 % (9.0-44.0); LYMPHOCYTE # 2.4 TH/MM3 (1.0-4.8); MEAN CELL VOLUME 90.6 FL (80.0-100.0); MEAN CORPUSCULAR HEMOGLOBIN 30.1 PG (27.0-34.0); MEAN CORPUSCULAR HGB CONC 33.2 % (32.0-36.0); MEAN PLATELET VOLUME 8.6 FL (7.0-11.0); MONO % 6.9 % (0.0-8.0); MONOCYTE # 0.4 TH/MM3 (0-0.9); NEUT % 52.4 % (16.0-70.0); PLATELET COUNT 238 TH/MM3 (150-450); RED BLOOD COUNT 4.68 MIL/MM3 (4.00-5.30); RED CELL DISTRIBUTION WIDTH 12.7 % (11.6-17.2); WHITE BLOOD COUNT 6.2 TH/MM3 (4.0-11.0)
[2018-03-04] MEDS ORDERED: diphenhydrAMINE HCL 50 MG/ML VIAL IV PUSH ONE (20:30)
[2018-03-04 20:42] LABS: ALBUMIN 4.6 GM/DL (3.4-5.0); AST (GOT) 23 U/L (15-37); BICARBONATE 25.7 MEQ/L (21.0-32.0); BLOOD UREA NITROGEN 18 MG/DL (7-18); CALCIUM 10.4 MG/DL (8.5-10.1); CHLORIDE 105 MEQ/L (98-107); CREATININE 0.85 MG/DL (0.50-1.00); GLOMERULAR FILTRATION RATE 99 ML/MIN (>89); GLUCOSE,RANDOM 80 MG/DL (74-106); SODIUM (NA) 139 MEQ/L (136-145)
[2018-03-04 20:45] LABS: ALKALINE PHOSPHATASE 70 U/L (45-117); ALT (GPT) 19 U/L (10-53); TOTAL BILIRUBIN ADULT 0.9 MG/DL (0.2-1.0); TOTAL PROTEIN 8.5 GM/DL (6.4-8.2)
== END 2018-03-04 21:48 | disposition home or self-care (01) ==
LOC: NEPD 18:19
DX: S09.90XA Unspecified injury of head, initial encounter (principal); R31.9 Hematuria, unspecified; W22.8XXA Striking against or struck by other objects, initial encounter; Y93.72 Activity, wrestling
CPT/HCPCS: 70450; 80053; 81001; 84703; 85025; 87086; 96361; 96374; 96375; 99284; J1200; J1885; J2765; J7030